=== PATIENT | female | born 1965 | race African-American/Black ===

== ENCOUNTER 2016-09-14 15:50 | Emergency (ER) | payer MEDICARE, MEDICAID ==
[~2016-09-14] VITALS: Ht 157.5 cm; Wt 118.0 kg
[~2016-09-14 15:50] MED LIST: AMLO10TA80 PO; AMOX125S8 PO; ASPI-1159 PO; GABA800T PO; HYDR-519 PO; POTA20TA82 PO; SERT100T PO; TIZA4TAB4 PO; TRAZ-132 PO
[2016-09-14] MEDS ORDERED: HYDROCODONE/ACETAMINOPHEN 5/325MG TABLET PO ONE (19:15)
[2016-09-14] MEDS ORDERED: ONDANSETRON 4MG ODT PO ONE (19:15)
[2016-09-14 23:10] VITALS: BP 141/83
== END 2016-09-14 23:10 | disposition home or self-care (01) ==
LOC: ER 19:45
DX: S83.92XA Sprain of unspecified site of left knee, initial encounter (principal); M79.89 Other specified soft tissue disorders; I10 Essential (primary) hypertension; M48.00 Spinal stenosis, site unspecified; Z79.82 Long term (current) use of aspirin; X58.XXXA Exposure to other specified factors, initial encounter; Y93.89 Activity, other specified; Y92.89 Other specified places as the place of occurrence of the external cause; Y99.8 Other external cause status
CPT/HCPCS: 29505; 73562; 93971; 99284; L1830; Q0162

== ENCOUNTER 2018-06-29 09:16 | Inpatient (IN) | payer MEDICARE, MEDICAID ==
[~2018-06-29] VITALS: Ht 157.5 cm; Wt 145.6 kg
[~2018-06-29 09:16] MED LIST changes: -TRAZ-132 PO; +TRAZ-213 PO
[2018-06-29] MEDS ORDERED: ASPIRIN 81MG TABLET PO ONE (10:00)
[2018-06-29] MEDS ORDERED: NITROGLYCERIN 0.4MG TABLET SL SL PRN (10:00)
[2018-06-29 10:06] LABS: BASOPHILS % 0.6 % (0.0-2.0); EOSINOPHILS % 2.3 % (0.0-5.0); HEMATOCRIT. 42.3 % (36.0-48.0); HEMOGLOBIN. 14.1 g/dL (12.0-16.0); LYMPHOCYTES % 35.7 % (20.0-50.0); MEAN CORPUSCULAR HEMOGLOBIN 29.2 pg (28.0-32.0); MEAN CORPUSCULAR VOLUME 87.5 fL (81.0-99.0); MEAN PLATELET VOLUME 8.2 fl (7.4-10.4); MONOCYTES % 8.6 % (2.0-8.0); NEUTROPHILS % 52.8 % (40.0-76.0); PLATELET 181 x1000/uL (130-400); RED BLOOD CELL COUNT 4.83 mill/uL (4.2-5.4); RED CELL DISTRIBUTION WIDTH 13.6 % (11.6-14.6)
[2018-06-29 10:10] LABS: CHLORIDE 108 mEq/L (98-107)
[2018-06-29 10:15] LABS: D-DIMER 0.4 mg/L FEU (<0.50); PARTIAL THROMBOPLASTIN TIME 30.6 sec (23.4-31.0)
[2018-06-29] MEDS ORDERED: MORPHINE SULFATE 2 MG/ML CPJ (NOT FOR IM USE) IV ONE (11:45)
[2018-06-29] MEDS ORDERED: MORPHINE SULFATE 4 MG/ML CPJ (NOT FOR IM USE) IV ONE (12:15)
[2018-06-29] MEDS ORDERED: ACETAMINOPHEN 325MG TABLET PO PRN ×2 (13:15→14:15)
[2018-06-29] MEDS ORDERED: CLONIDINE 0.1MG TABLET PO PRN (13:15)
[2018-06-29] MEDS ORDERED: DOCUSATE SODIUM 100MG CAPSULE PO PRN (14:15)
[2018-06-29] MEDS ORDERED: ONDANSETRON HCL 4MG/2ML INJ IV PRN (14:15)
[2018-06-29] MEDS ORDERED: MAGNESIUM/ALUMINUM HYDROXIDE/SIMETHICONE 30ML UDC PO PRN (14:15)
[2018-06-29] MEDS ORDERED: ENOXAPARIN 40MG/0.4ML SYR SUBCUT SCH (14:15)
[2018-06-29 14:30] VITALS: BP 130/67
[2018-06-29 15:51] VITALS: BP 156/81
[2018-06-29] MEDS: SERTRALINE HCL 100MG TABLET PO SCH (15:59)
[2018-06-29] MEDS: HYDROCODONE/ACETAMINOPHEN 5/325MG TABLET PO PRN (16:00)
[2018-06-29] MEDS: ENOXAPARIN 40MG/0.4ML SYR SUBCUT SCH ×2 (16:00→23:30)
[2018-06-29] MEDS: AMLODIPINE 10MG TABLET PO SCH (16:03)
[2018-06-29] MEDS: GABAPENTIN 400MG CAPSULE PO SCH ×2 (18:23→21:07)
[2018-06-29 20:05] VITALS: BP 155/71
[2018-06-29] MEDS ORDERED: TRAZODONE HCL 100MG TABLET PO SCH (21:00)
[2018-06-29] MEDS ORDERED: ZOLPIDEM TARTRATE 5MG TABLET PO PRN (21:00)
[2018-06-29] MEDS: TIZANIDINE HCL 4MG TABLET PO SCH (21:07)
[2018-06-29] MEDS: TRAZODONE HCL 100MG TABLET PO SCH (21:07)
[2018-06-30] VITALS: BP 113/64
[2018-06-30] MEDS: HYDROCODONE/ACETAMINOPHEN 5/325MG TABLET PO PRN ×3 (02:12→18:45)
[2018-06-30 04:00] VITALS: BP 152/127
[2018-06-30 05:45] LABS: BASOPHILS % 0.8 % (0.0-2.0); EOSINOPHILS % 2.8 % (0.0-5.0); HEMATOCRIT. 39.7 % (36.0-48.0); HEMOGLOBIN. 13.5 g/dL (12.0-16.0); LYMPHOCYTES % 39.3 % (20.0-50.0); MEAN CORPUSCULAR HEMOGLOBIN 29.5 pg (28.0-32.0); MEAN PLATELET VOLUME 8.3 fl (7.4-10.4); MONOCYTES % 10.5 % (2.0-8.0); NEUTROPHILS % 46.6 % (40.0-76.0); PLATELET 183 x1000/uL (130-400); RED BLOOD CELL COUNT 4.57 mill/uL (4.2-5.4); RED CELL DISTRIBUTION WIDTH 13.7 % (11.6-14.6)
[2018-06-30 06:01] LABS: CHLORIDE 107 mEq/L (98-107)
[2018-06-30 06:12] LABS: PHOSPHORUS 3.6 mg/dL (2.5-4.9)
[2018-06-30 06:13] LABS: LDL CHOLESTEROL 92 mg/dL (5-100)
[2018-06-30 06:16] LABS: HDL CHOLESTEROL 36 mg/dL (40-59)
[2018-06-30] MEDS: SERTRALINE HCL 100MG TABLET PO SCH (09:47)
[2018-06-30] MEDS: GABAPENTIN 400MG CAPSULE PO SCH ×4 (09:47→21:35)
[2018-06-30] MEDS: OMEPRAZOLE 20MG CAPSULE EXTENDED RELEASE PO SCH (09:47)
[2018-06-30] MEDS: AMLODIPINE 10MG TABLET PO SCH (09:47)
[2018-06-30] MEDS: ENOXAPARIN 40MG/0.4ML SYR SUBCUT SCH ×2 (09:48→21:38)
[2018-06-30] MEDS ORDERED: KETOROLAC 30MG/ML VIAL IV NR (12:00)
[2018-06-30] MEDS: FUROSEMIDE 40MG TABLET PO SCH (13:23)
[2018-06-30] MEDS: LOSARTAN POTASSIUM 25 MG TABLET PO SCH (13:24)
[2018-06-30 20:00] VITALS: BP 149/81
[2018-06-30] MEDS: TIZANIDINE HCL 4MG TABLET PO SCH (21:35)
[2018-06-30] MEDS: TRAZODONE HCL 100MG TABLET PO SCH (21:36)
[2018-07-01] VITALS: BP 149/97
[2018-07-01 07:47] LABS: BASOPHILS % 0.6 % (0.0-2.0); HEMATOCRIT. 43.4 % (36.0-48.0); HEMOGLOBIN. 14.4 g/dL (12.0-16.0); LYMPHOCYTES % 32.1 % (20.0-50.0); MEAN CORPUSCULAR HEMOGLOBIN 29.3 pg (28.0-32.0); MEAN PLATELET VOLUME 8.6 fl (7.4-10.4); MONOCYTES % 9.8 % (2.0-8.0); NEUTROPHILS % 55.5 % (40.0-76.0); PLATELET 199 x1000/uL (130-400); RED BLOOD CELL COUNT 4.93 mill/uL (4.2-5.4); RED CELL DISTRIBUTION WIDTH 13.6 % (11.6-14.6)
[2018-07-01 08:00] VITALS: BP_SYST 13; BP_SYST 130; BP_DIAS 82
[2018-07-01] MEDS: OMEPRAZOLE 20MG CAPSULE EXTENDED RELEASE PO SCH (08:07)
[2018-07-01 08:13] LABS: CHLORIDE 109 mEq/L (98-107)
[2018-07-01] MEDS: FUROSEMIDE 40MG TABLET PO SCH (08:21)
[2018-07-01] MEDS: GABAPENTIN 400MG CAPSULE PO SCH (08:21)
[2018-07-01] MEDS: LOSARTAN POTASSIUM 25 MG TABLET PO SCH (08:21)
[2018-07-01] MEDS: HYDROCODONE/ACETAMINOPHEN 5/325MG TABLET PO PRN (08:21)
[2018-07-01] MEDS: SERTRALINE HCL 100MG TABLET PO SCH (08:21)
[2018-07-01] MEDS: ENOXAPARIN 40MG/0.4ML SYR SUBCUT SCH (08:22)
[2018-07-01 09:46] VITALS: BP 130/82
== END 2018-07-01 10:21 | disposition home or self-care (01) | DRG 313 ==
LOC: ER 09:21 → 6WST 11:04 → ENRESERV 13:01 → 6WST 14:42
PROVIDERS: ADMIT Specialist; ATTEND Specialist
DX: R07.89 Other chest pain (principal); Z68.43 Body mass index [BMI] 50.0-59.9, adult; I25.10 Atherosclerotic heart disease of native coronary artery without angina pectoris; I10 Essential (primary) hypertension; F31.9 Bipolar disorder, unspecified; E11.65 Type 2 diabetes mellitus with hyperglycemia; E66.9 Obesity, unspecified; F20.9 Schizophrenia, unspecified; M79.89 Other specified soft tissue disorders; Z82.49 Family history of ischemic heart disease and other diseases of the circulatory system; Z95.810 Presence of automatic (implantable) cardiac defibrillator; Z86.74 Personal history of sudden cardiac arrest; Z79.899 Other long term (current) drug therapy; Z79.82 Long term (current) use of aspirin
CPT/HCPCS: 36415; 71045; 80048; 80061; 83036; 83735; 83880; 84100; 84443; 84484; 85379; 93005; 93306; 93970; 96374; 96375; 99285; C1893; J1650; J1885; J2270

== ENCOUNTER 2020-08-18 10:00 | Emergency (ER) | payer MEDICARE, MEDICAID ==
[~2020-08-18] VITALS: Ht 157.5 cm; Wt 145.0 kg
[~2020-08-18 10:00] MED LIST changes: +AMOX125S12 PO; -AMOX125S8 PO; -ASPI-1159 PO; +ASPI-1497 PO; -TIZA4TAB4 PO; +TIZA4TAB5 PO; -TRAZ-213 PO; +TRAZ-252 PO
[2020-08-18] MEDS ORDERED: KETOROLAC 30MG/ML VIAL IM ONE (10:15)
[2020-08-18 11:42] VITALS: BP 116/73
== END 2020-08-18 11:43 | disposition home or self-care (01) ==
LOC: ER 10:20
DX: M79.604 Pain in right leg (principal); I10 Essential (primary) hypertension; Z79.899 Other long term (current) drug therapy; Z98.890 Other specified postprocedural states; Z86.59 Personal history of other mental and behavioral disorders
CPT/HCPCS: 93971; 96372; 99284; J1885

== ENCOUNTER 2023-03-01 10:04 | Emergency (ER) | payer MEDICARE, MEDICAID ==
[~2023-03-01] VITALS: Ht 165.1 cm; Wt 136.0 kg
[~2023-03-01 10:04] MED LIST changes: +POTA-204 PO; -POTA20TA82 PO; +TIZA-204 PO; -TIZA4TAB5 PO
[2023-03-01 10:07] VITALS: O2SAT 98
[2023-03-01 12:18] VITALS: BP 110/78; PULSE 83; RESP 18; TEMP 97.7
== END 2023-03-01 12:20 | disposition home or self-care (01) ==
LOC: ER 11:16
DX: M79.645 Pain in left finger(s) (principal); E11.9 Type 2 diabetes mellitus without complications; I10 Essential (primary) hypertension; Z98.890 Other specified postprocedural states; Z86.59 Personal history of other mental and behavioral disorders
CPT/HCPCS: 29125; 99283

== ENCOUNTER 2024-11-01 13:52 | Emergency (ER) | payer MEDICARE, MEDICAID ==
[~2024-11-01] VITALS: Ht 157.5 cm; Wt 146.0 kg
[2024-11-01 14:01] VITALS: O2SAT 96
[2024-11-01] MEDS ORDERED: CAPS42.514 TP (16:15)
[2024-11-01 17:00] VITALS: BP 123/71; PULSE 70; RESP 18; TEMP 36.8; O2SAT 96
== END 2024-11-01 17:00 | disposition home or self-care (01) ==
LOC: ER 13:52
DX: M25.561 Pain in right knee (principal); F31.9 Bipolar disorder, unspecified; F20.9 Schizophrenia, unspecified; E66.01 Morbid (severe) obesity due to excess calories; E11.9 Type 2 diabetes mellitus without complications; I10 Essential (primary) hypertension; Z79.899 Other long term (current) drug therapy
CPT/HCPCS: 73562; 99283

== ENCOUNTER 2024-12-25 10:42 | Emergency (ER) | payer MEDICARE, MEDICAID ==
[~2024-12-25] VITALS: Ht 157.5 cm; Wt 143.0 kg
[~2024-12-25 10:42] MED LIST changes: +CAPS42.514 TP
[2024-12-25 10:49] VITALS: TEMP 36.8; O2SAT 95
[2024-12-25] MEDS: KETOROLAC 30MG/ML VIAL IM ONE (12:01)
[2024-12-25] MEDS: ACETAMINOPHEN 325MG TABLET PO ONE (12:01)
[2024-12-25] MEDS ORDERED: NAPR-1164 MT (12:42)
[2024-12-25 12:57] VITALS: BP 128/84; PULSE 89; RESP 16; O2SAT 100
== END 2024-12-25 12:58 | disposition home or self-care (01) ==
LOC: ER 11:14
DX: M79.604 Pain in right leg (principal); E11.9 Type 2 diabetes mellitus without complications; F20.9 Schizophrenia, unspecified; F31.9 Bipolar disorder, unspecified; Z79.899 Other long term (current) drug therapy
CPT/HCPCS: 99285; 93971; 96372; J1885